=== PATIENT | female | born 1975 | race Native Hawaiian/Other Pacific Islander ===

== ENCOUNTER 2017-06-08 13:41 | Outpatient (CLI) | payer OTHER | END 2017-06-08 19:18 | disposition home or self-care (01) | LOC: RAD 13:41 | DX: M54.5 Low back pain (principal) ==

== ENCOUNTER 2019-12-08 11:33 | Outpatient (CLI) | payer OTHER | END 2019-12-08 20:41 | disposition home or self-care (01) | LOC: MAMMO 11:33 | DX: N64.4 Mastodynia (principal) | CPT/HCPCS: G0279 ==

== ENCOUNTER 2020-06-04 12:37 | Outpatient (CLI) | payer OTHER | END 2020-06-04 20:32 | disposition home or self-care (01) | LOC: RAD 12:37 | DX: M79.671 Pain in right foot (principal); M54.5 Low back pain; M25.512 Pain in left shoulder ==

== ENCOUNTER 2020-12-19 11:41 | Outpatient (CLI) | payer OTHER | END 2020-12-19 21:04 | disposition home or self-care (01) | LOC: MAMMO 11:41 | PROVIDERS: ATTEND Family Medicine | DX: Z12.31 Encounter for screening mammogram for malignant neoplasm of breast (principal) ==

== ENCOUNTER 2021-01-22 16:26 | Outpatient (CLI) | payer OTHER | END 2021-01-22 19:29 | disposition home or self-care (01) | LOC: RAD 16:26 | PROVIDERS: ATTEND Nurse Practitioner Primary Care | DX: M79.644 Pain in right finger(s) (principal) ==

== ENCOUNTER 2021-01-29 15:20 | Outpatient (CLI) | payer OTHER | END 2021-01-29 19:00 | disposition home or self-care (01) | LOC: RAD 15:20 | PROVIDERS: ATTEND Nurse Practitioner Primary Care | DX: M25.521 Pain in right elbow (principal) ==

== ENCOUNTER 2021-12-23 10:49 | Outpatient (CLI) | payer OTHER | END 2021-12-23 18:53 | disposition home or self-care (01) | LOC: MAMMO 10:49 | PROVIDERS: ATTEND Nurse Practitioner Family | DX: Z12.31 Encounter for screening mammogram for malignant neoplasm of breast (principal) ==

== ENCOUNTER 2022-01-13 13:15 | Outpatient (CLI) | payer OTHER | END 2022-01-13 19:04 | disposition home or self-care (01) | LOC: RAD 13:15 | PROVIDERS: ATTEND Nurse Practitioner Family | DX: M54.12 Radiculopathy, cervical region (principal) ==

== ENCOUNTER 2022-10-07 15:44 | Outpatient (CLI) | payer OTHER ==
[2022-10-07 16:21] LABS: POTASSIUM 4.2 mmol/L (3.6-5.2)
== END 2022-10-07 19:00 | disposition home or self-care (01) ==
LOC: LABW 15:44
PROVIDERS: ATTEND Nurse Practitioner Primary Care
DX: R07.89 Other chest pain (principal); M25.50 Pain in unspecified joint
CPT/HCPCS: 36415; 80053; 82550; 82553; 84484; 84550; 86038; 86060; 86140; 86431; 93005

== ENCOUNTER 2022-11-24 19:38 | Outpatient (CLI) | payer OTHER | END 2022-11-24 20:48 | disposition home or self-care (01) | LOC: RAD 19:38 | PROVIDERS: ATTEND Emergency Medicine Emergency Medical Services | DX: M79.644 Pain in right finger(s) (principal); M79.645 Pain in left finger(s); M54.2 Cervicalgia ==